=== PATIENT | female | born 1965 | race Caucasian/White ===

== ENCOUNTER 2021-07-07 12:12 | Day surgery (SDC) | payer MEDICAID, SELFPAY ==
[2021-07-07] VITALS (11 sets, daily range): BP systolic 102–143; BP diastolic 41–94; PULSE 70–93; RESP 16–18; TEMP 36.1–36.8; O2SAT 94–99
--- NOTE | 2021-07-07 12:26 | EKG12_ITS ---
Test Reason : PRE OP Blood Pressure : / mmHG Vent. Rate : 070 BPM Atrial Rate : 070 BPM P-R Int : 150 ms QRS Dur : 090 ms QT Int : 428 ms P-R-T Axes : 039 -02 016 degrees QTc Int : 462 ms Normal sinus rhythm Normal ECG Confirmed by CURLY SANTIAGO, ALENA ([id number]), film and video editor SANJAY MARINO ([id number]) on 07/13/2021 9:50:41 AM Referred By: Andre Jones Confirmed By:ALENA RAWLS MD
[2021-07-07 14:04] LABS: Anion Gap 7 (5-15); BUN 14 mg/dL (7-18); BUN/Creat Ratio 20.1 RATIO (10-20); Calcium,Total 9.1 mg/dL (8.5-10.1); Chloride 102 mmol/L (98-107); EST Glomerular Filtration Rate 93 mL/min (>60); Est Glom Filt Rate - Afr Amer 112 mL/min (>60); Estimated Creatinine Clearance 65.23 ml/min; Glucose 120 mg/dL (74-106); Potassium 4.1 mmol/L (3.5-5.1); Sodium Level 140 mmol/L (136-145)
[2021-07-07] MEDS: Cefazolin 2 GM in 0.9% Normal Saline 100 ML IV (14:26)
--- NOTE | 2021-07-07 14:45 | RAD_ITS ---
STUDY: X-RAY - LEFT HUMERUS REASON FOR EXAM: Female, 55 years old. FX TECHNIQUE: 9 intraoperative fluoroscopic view(s) of the humerus. COMPARISON: None. FINDINGS: Acute oblique displaced fracture through the mid aspect of the left humerus noted. Subsequent images shows reduction of the fracture fragments followed by surgical instrumentation with subsequent placement of a cortical plate-screw construct across the middle one third aspect of the humerus with near-anatomic alignment. RAD/Humerus min 2 Views IMPRESSION: Status post hardware fixation of the left humerus fracture fragments Electronically Signed: Jake Crystal MD at 16:57 EDT , Service support ,
[2021-07-07] MEDS: Thrombin 5,000 IU Kit (PSA) 5,000 IU Vial 5000 IU TOPICAL (15:35)
[2021-07-07 15:46] LABS: Bedside Glucose 112 mg/dL (70-110)
--- NOTE | 2021-07-07 16:43 | DCINST_ITS ---
Discharge Instructions Diet Discharge Diet: No restrictions Activity Discharge Activity: May Not Drive and May Shower (keep dressing dry) May shower in (days): 1 May resume sexual activity in: 10-14 days Ice area for (Minutes): 30 Weight Bearing Status: No weight bearing Additional Activity Instructions:: Sling for comfort. May remove sling for gentle range of motion of shoulder elbow wrist and fingers. Dressing / Incision Call your doctor if your incision/area has: Continuous Slow Oozing, Sudden Inc reased Bleeding, Increased Pain/ Swelling and Increased Redness Call your doctor if you observe: Fever of 101 or Higher Change Dressing in: do not change dressing Remove Dressing in: 5 days Additional Dressing/Incision Instructions:: If incision is clean dry and intact may leave the wound open to air and continue showering. If there is continued drainage continue daily dry dressing changes and keep incision clean dry and intact until there is no drainage. Follow Up Care Test Results: Test results from this visit will be discussed in further detail at your follow-up appointment, if applicable. Discharge Plan Admission Attending Provider: Andre Jones Primary Care Provider: Yolanda Beverly Discharge Orders/Prescriptions Prescriptions: New oxycodone 5 mg Tablet 5 - 10 mg PO Q6H PRN (Reason: pain) 7 Days Qty: 50 RF: 0 Continued metformin 500 mg tablet 500 mg PO BID RF: 0 atorvastatin 20 mg tablet 20 mg PO QHS RF: 0 citalopram 20 mg tablet 20 mg PO DAILY RF: 0 vitamin A 10,000 unit Capsule 10,000 unit PO DAILY RF: 0 ascorbic acid (vitamin C) [Vitamin C] 500 mg Tablet 500 mg PO DAILY RF: 0 lisinopril-hydrochlorothiazide 10-12.5 mg tablet 1 tab PO DAILY RF: 0 multivitamin-iron (hematinic) Tablet 1 tab PO DAILY RF: 0 albuterol sulfate 2.5 mg /3 mL (0.083 %) Solution For Nebulization 2.5 mg INHALATION Q4H PRN (Reason: ASTHMA) RF: 0 Discontinued oxycodone-acetaminophen 5-325 mg tablet 1 tab PO Q4H PRN PRN (Reason: Pain) RF: 0 Referrals / Follow Up: Yolanda Beverly PA [Primary Care Provider] - Disposition Disposition (needs filled in before D/C Order can be placed): Home, Self Care
--- NOTE | 2021-07-07 16:46 | OP.PCM_ITS ---
Report of Operation Date of Procedure: 07/07/21 Pre-Operative Diagnosis: Left midshaft humerus fracture Post-Operative Diagnosis: Left midshaft humerus fracture Surgery/Procedure Performed:: Open reduction internal fixation left midshaft humerus fracture Description of Surgical Findings:: Stable well reduced fracture Surgeon: Andre Jones kiln car unloader: Kp Muhammad Type of Anesthesia: General Anesthesiologist: Sergio Portillo Special Medications: Ancef Estimated Blood Loss (mL): 150 Fluids Replaced: 1400 mL crystalloid Description of Procedure: On the date of procedure patient's left humerus was marked in the preoperative area. Patient was brought back to the operating room where they were transferred the table in the supine position. Anesthesia assumed control of the C-spine and airway. After the administered anesthetic all bony prominences identified well-padded. Patient was placed in the lateral position and the left upper extremity was placed over a bump and radiolucency was verified. A beanbag was used to position the patient. All bony problems were again identified well-padded axillary roll was placed. At this time the left upper extremity was prepped sterilely using chlorhexidine and the left upper extremity was then draped after the surgeon scrubbed. After sterilely draping the left upper extremity timeout was called everyone agreed upon the side, the site, procedure to be performed, patient's identity and antibiotics given. After timeout was called incision was marked out. Incision was taken through skin. Bovie cautery was used to dissect down to fascia. Fascia was in cised sharply. The triceps musculature was then retracted medially carefully retracting his we identified the radial nerve. Radial nerve is laying right over the fracture and area of callus. This was carefully dissected off the fracture callus and there were some adhesions. After we were able to do this were able to identify both fracture ends. Previous fracture callus and fracture hematoma were removed. Pointed reduction clamps used to reduce the fracture. Live x-ray was used to verify fracture reduction. 2 lag screws were placed in a lag screw by technique design. Once this was completed an 8 hole plate was placed the nerve went over holes 5 through 7 with #1 being the most distal hole. 2 screws were placed to provisionally fix the plate. Once this was done live x-ray was used to verify plate placement and fracture reduction. Once we are happy with this 2 additional screws were placed proximally distally for a total of 6 cortices proximal to the fracture and distal to the fracture. Live x-ray was used to verify final plate placement screw placement and fracture reduction. Wound was copiously irrigated out normal saline. Fascia was closed using 0 Vicryl skin was closed using 2-0 Vicryl. Final closure was done with strata fix Monocryl barbed suture. Steri-Strips were placed. Soft compressive dressing was placed. Patient was awakened anesthesia transferred the PACU for recovery. Postop plan patient will be nonweightbearing for a total of 6 weeks. We will start early range of motion with physical therapy at 2-week postop visit. She will start gentle range of motion at home. She is placed in a sling today. She will get a block for postop pain control. We did not use the block preoperatively so that we can monitor the nerve intraoperatively. My physician assistant sales director played a vital role throughout the procedure. He was vital in helping with positioning the patient. He was vital with and helping to carefully dissect and retract tissues as we identified the nerve. He was vital and protecting the nerve during the procedure. Was vital in helping with retraction and rotation of the arm as we reduce the fracture. He was vital in helping place the hardware by retracting neurovascular structures. He was vital in closure under my direct supervision.
[2021-07-07 17:50] LABS: Bedside Glucose 130 mg/dL (70-110)
[2021-07-07] MEDS: Ketorolac 30 MG/ML Syringe IV (17:57)
[2021-07-07] MEDS: Ipratropium/Albuterol Sulfate 3 ML AMPUL.NEB INHALATION (18:26)
[2021-07-07] MEDS: oxyCODONE 5 MG Tablet PO (19:09)
== END 2021-07-07 19:45 | disposition home or self-care (01) ==
LOC: SDC 12:16 → AC 12:18
PROVIDERS: Anesthesiology; Referring Provider Specialist; Visit Provider Specialist
PROC: (CPT 24515; principal; 2021-07-07 14:25)
DX: S42.332A Displaced oblique fracture of shaft of humerus, left arm, initial encounter for closed fracture (principal); X58.XXXA Exposure to other specified factors, initial encounter; Y93.9 Activity, unspecified; Y92.9 Unspecified place or not applicable; Y99.9 Unspecified external cause status; G80.9 Cerebral palsy, unspecified; E11.9 Type 2 diabetes mellitus without complications; I10 Essential (primary) hypertension; E78.00 Pure hypercholesterolemia, unspecified; J45.909 Unspecified asthma, uncomplicated; M19.90 Unspecified osteoarthritis, unspecified site; K21.9 Gastro-esophageal reflux disease without esophagitis; F32.A Depression, unspecified; Z79.84 Long term (current) use of oral hypoglycemic drugs; Z79.82 Long term (current) use of aspirin; Z79.899 Other long term (current) drug therapy
CPT/HCPCS: 01740; 24515; 73060; 76000; 80048; 82962; 83036; 93005; 94640; C1713; J7120; J2405

== ENCOUNTER 2025-04-10 17:38 | Emergency (ER) | payer MEDICAID, SELFPAY ==
[2025-04-10 17:38] VITALS: BP 150/84; PULSE 105; RESP 18; TEMP 36.6; O2SAT 99; BMI 29.0
--- NOTE | 2025-04-10 18:00 | EDS_ITS ---
HPI History of Present Illness Chief Complaint: Anxiety Informant: patient Onset/Context/Timing Onset: Weeks (2) Context: Gradual Onset Timing: Continuous Quality: Jittery Location: Generalized Worsened by: Nothing Relieved by: Family Narrative Narrative: Patient presents with increased anxiety over the past 2 weeks. Patient states it became worse this morning when she woke up. Patient states she feels jittery. Patient states she feels better when her family is around. Patient states she was recently treated for urinary tract infection. Patient denies any nausea or vomiting. Patient does admit to some dysuria. Patient states she was hospitalized in the past for bipolar disorder. Family states she was started on medications for bipolar disorder. Family states the patient followed up with psychiatrist and was doing better. Family states that the psychiatrist stopped her bipolar medications. Family states that her symptoms have been getting progressively worse. Patient denies any suicidal ideations. [facility] Medical History (Updated 04/10/25 @ 23:[address] Mynor Arce, DO) Bipolar disorder (manic depression) Wears glasses Depression Diabetes Ambulates with cane Walker as ambulation aid Arthritis Kidney stone Anemia High cholesterol Cerebral palsy Difficulty swallowing History of IBS Gastric reflux Asthma Shortness of breath on exertion Chronic cough Leg cramps History of pain when walking History of edema Hypertension Home Medications ?Medication ?Instructions ?Recorded ?Last Taken ?Type albuterol sulfate 2.5 mg/3 mL 2.5 mg inhalation Q4H [place] N ASTHMA 07/05/21 Unknown History (0.083 %) solution for nebulization ascorbic acid (vitamin C) 500 mg 500 mg PO DAILY 07/05 Unknown History tablet (Vitamin C) atorvastatin 20 mg tablet 20 mg PO QHS 07/05/21 Unknow n History citalopram 20 mg tablet 20 mg PO DAILY 07/05/21 Unkn own History lisinopril 10 1 tab PO DAILY 07/05/21 Unkn own History mg-hydrochlorothiazide 12.5 mg tablet metformin 500 mg tablet 500 mg PO BID 07/05/21 Unkno wn History multivitamin-iron (hematinic) 1 tab PO DAILY 07/05/21 Unknown History vitamin A 3,000 mcg (10,000 unit) 10,000 unit PO DAILY 07/05/21 Unknown History capsule oxycodone 5 mg tablet 5 - 10 mg (1 - 2 x 5 mg) PO Q6H 07/07/21 Unknown Rx PRN pain 7 days #50 tabs Allergy/AdvReac Type Severity Reaction Status Date / Time Penicillins AdvReac Severe RASH Verified 04/10/25 17:41 Surgical History S/P ORIF (open reduction internal fixation) fracture Hx of foot surgery Hx of hysterectomy Social History Smoking Status: Never smoker ROS ROS ED Constitutional Constitutional ED: Denies chills or fever(s) Eyes Eyes: Denies blurry vision or change in vision ENT ENT ED: Reports sore throat; Denies rhinorrhea Cardiovascular Cardiovascular: Denies chest pain or palpitations Respiratory/Chest Respiratory/Chest: Reports cough; Denies dyspnea Gastrointestinal Gastrointestinal: Denies nausea or vomiting Genitourinary Genitourinary ED: Reports dysuria; Denies hematuria Musculoskeletal Musculoskeletal: Reports back pain; Denies neck pain Integumentary Reports rash; Denies abscess Neurologic Neurologic: Reports headache(s); Denies weakness Psychiatric Psychiatric: Reports anxiety Allergic/Immunologic Allergic/Immunologic ED: Denies mouth swelling or urticaria EXAM Physical Exam Const Vital Signs: 04/10/25 17:38 04/10/25 21:38 04/10/25 21:43 Temperature 98 F 98 F Temperature Source Oral Pulse Rate 105 H 96 96 Respiratory Rate 18 18 18 Blood Pressure 150/84 H 166/82 H 166/82 H Blood Pressure Mean 106 110 110 Pulse Ox 99 100 100 Oxygen Delivery Method Room Air Positive well nourished and well developed General Appearance ED: well developed and NAD HEENT Reports moist mucous membranes Neck supple and no JVD Resp normal respiratory effort and clear to auscultation bilaterally Cardio regular rate and regular rhythm GI non-tender and non-distended Palpation: soft Neuro oriented x3, CN's II-XII intact bilaterally and no sensory deficits noted Psych mental status grossly normal MDM MDM MDM Narrative Medical decision making narrative: Differential diagnosis includes bipolar disorder, anxiety, electrolyte abnormality, urinary tract infection, and dehydration. CBC will be obtained to assess for leukocytosis and anemia. Basic metabolic profile will be obtained to assess for electrolyte abnormality and renal function. Urinalysis will be obtained to assess for urinary tract infection and hematuria. History & Record Review Additional record(s) reviewed:: Prior outpatient record and Prior labs Lab Data Attestation: I reviewed the patient's lab results. Lab results narrative: CBC was reviewed. There is a slight anemia with a hemoglobin of 11.3. The remainder is within normal limits. Basic metabolic profile was reviewed. Glucose was slightly elevated at 123. The remainder was within normal limits. Urinalysis was reviewed. Leukocyte esterase was 500 with 5-10 white blood cells. Labs: Laboratory Results - last 24 hr 04/10/25 04/10/25 18:13 18:48 WBC 10.0 RBC 4.72 Hgb 11.3 L Hct 37.1 MCV 78.6 L MCH 23.9 L MCHC 30.5 L RDW Std Deviation 51.8 H RDW Coeff of [place] 18.2 H Plt Count 369 MPV 9.4 Immature Gran % (Auto) 0.200 Neut % (Auto) 50.4 Lymph % (Auto) 38.7 [place] % (Auto) 7.0 Eos % (Auto) 3.2 Baso % (Auto) 0.5 Absolute Neuts (auto) 5.0 Absolute Lymphs (auto) 3.86 Nucleated RBC % 0 Sodium 143 Potassium 4.2 Chloride 108 Carbon Dioxide 23.1 Anion Gap 12 BUN 14 Creatinine 0.77 Estim Creat Clear Calc 67.38 Est GFR (MDRD) Non-Af 88 BUN/Creatinine Ratio 18.6 Glucose 123 H Calcium 9.3 Urine Color Yellow Urine Clarity Clear Urine pH 6.0 Ur Specific [place] 1.025 Urine Protein 30 H Urine Glucose (UA) Normal Urine Ketones Negative Urine Occult Blood 10 H Urine Nitrite Negative Urine Bilirubin Negative Urine Urobilinogen Normal Ur Leukocyte Esterase 500 H Urine RBC 0-5 SEEN Urine WBC 5-10 SEEN Ur Squamous Epith Cells 0-5 SEEN Urine Bacteria 0 SEEN Urine Mucus 0 SEEN Management Discussion w/another healthcare provider: oil field worker/Case management Additional Tests and Interventions Additional Tests or Interventions: Urine culture was ordered. Treatment and Re-Evaluation :: Patient was given a dose of hydroxyzine. Patient was feeling better after this. Patient was advised of her findings. Patient was given a dose of Bactrim here. Patient was given a prescription for Bactrim. Patient was instructed to drink plenty of fluids. Patient was instructed to follow-up with her primary care physician in 5 to 7 days. Patient was also given referral for mental health. Patient will follow up with this. Patient and family understood and were agreeable with the plan. All questions were answered. Prior to the patient being discharged, she began feeling more anxious. Patient states she did not feel safe going home. Patient had vague suicidal ideations. Patient told behavioral health worker that there are times where she feels like she would be better off . Patient denies any plan for suicide. Patient started having more flight of ideas and tangential thoughts. Because of this, crisis counselor recommended admission to a psychiatric hospital. Family is agreeable with this. [place] slip was filled out and placed on the chart. Patient is medically cleared for psychiatric placement. Care of the patient will be t urned over to the oncoming physician pending placement. Discharge Plan Triage Chief Complaint: Anxiety ED Provider: Mynor Arce Dx/Rx/DC Orders Clinical Impression: Bipolar disorder with severe leonardo, Acute anxiety, Urinary tract infection Instructions: ED Anxiety Reaction, ED Cystitis Female Adult Prescriptions: No Action metformin 500 mg tablet 500 mg PO BID atorvastatin 20 mg tablet 20 mg PO QHS citalopram 20 mg tablet 20 mg PO DAILY vitamin A 10,000 unit Capsule 10,000 unit PO DAILY ascorbic acid (vitamin C) [Vitamin C] 500 mg Tablet 500 mg PO DAILY lisinopril-hydrochlorothiazide 10-12.5 mg tablet 1 tab PO DAILY multivitamin-iron (hematinic) Tablet 1 tab PO DAILY albuterol sulfate 2.5 mg /3 mL (0.083 %) Solution For Nebulization 2.5 mg INHALATION Q4H PRN (Reason: ASTHMA) oxycodone 5 mg Tablet 5 - 10 mg PO Q6H PRN (Reason: pain) 7 Days Qty: 50 0RF Primary Care Provider: Yolanda Beverly Referrals: Yolanda Beverly PA [Primary Care Provider] - 3-5 Days Print Language: Syriac Disposition Disposition: Psychiatric Hospital or Unit
[2025-04-10 18:37] LABS: Hematocrit 37.1 % (37-47); Hemoglobin 11.3 g/dL (12.0-15.0); Immature Granulocytes Count 0.020 X10^3/uL (0.0-0.0); Mean Corp Hgb Conc 30.5 g/dL (32-36); Mean Corpuscular Volume 78.6 fL (81-99); Mean Platelet Vol. 9.4 fl (6.2-12.0); NRBC Flagged by Analyzer 0 % (0-5); Platelet Count 369 K/mm3 (150-450); RBC Distribution Width CV 18.2 % (11.6-14.6); RBC Distribution Width SD 51.8 fl (35.1-43.9); Red Blood Count 4.72 M/mm3 (4.2-5.4); White Blood Count 10.0 K/mm3 (4.4-11.0)
[2025-04-10 18:52] LABS: Mucous, Urine 0 SEEN /hpf (<or=2+)
[2025-04-10 19:10] LABS: Anion Gap 12 (5-15); BUN 14 mg/dL (4-19); BUN/Creat Ratio 18.6 RATIO (10-20); Calcium,Total 9.3 mg/dL (7.6-11.0); Carbon Dioxide 23.1 mmol/L (21.0-32.0); Chloride 108 mmol/L (98-108); Estimated Creatinine Clearance 67.38 ml/min (50-250); Glucose 123 mg/dL (70-99); Potassium 4.2 mmol/L (3.3-5.1)
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
[2025-04-10] MEDS: hydrOXYzine PAM 25 MG Capsule PO (19:38)
[2025-04-10 20:57] LABS: Color, Urine Yellow (Yellow); Glucose, Dipstick Normal (Normal); Ketone-Dipstick Negative (Negative); Leukocyte Esterase-Dipstick 500 /ul (Negative); Nitrite-Dipstick Negative (Negative); Occult Blood-Urine 10 /ul (Negative); Protein-Dipstick 30 mg/dl (Negative); Specific Gravity, Urine 1.025 (1.002-1.030); Urine Bilirubin Dipstick Negative (Negative)
[2025-04-10 21:01] LABS: Red Blood Cells-Urine 0-5 SEEN /hpf (0-5); Squamous Epithelial Cells - UA 0-5 SEEN /hpf (5-10)
[2025-04-10 21:38] VITALS: BP 166/82; PULSE 96; RESP 18; O2SAT 100
[2025-04-10 21:43] VITALS: BP 166/82; PULSE 96; RESP 18; TEMP 36.6; O2SAT 100
[2025-04-11 01:00] VITALS: BP 170/97; PULSE 92; RESP 18; TEMP 36.8; O2SAT 100
[2025-04-11 01:20] LABS: Barbiturate Urine NEGATIVE (< 200 ng/mL); Benzodiazepine Urine NEGATIVE (< 200 ng/mL); PCP Urine NEGATIVE (< 25 ng/mL); THC Urine NEGATIVE (< 50 ng/mL)
[2025-04-11 01:40] LABS: Alcohol, Blood (Medical)-Serum < 10.1 mg/dL (<=10.0)
[2025-04-11 05:00] VITALS: BP 152/85; PULSE 83; RESP 16; O2SAT 99
== END 2025-04-11 06:44 ==
PROVIDERS: Emergency Provider Emergency Medicine; Visit Provider Emergency Medicine
DX: F41.9 Anxiety disorder, unspecified (principal); F31.9 Bipolar disorder, unspecified; E11.9 Type 2 diabetes mellitus without complications; N39.0 Urinary tract infection, site not specified; I10 Essential (primary) hypertension; E78.00 Pure hypercholesterolemia, unspecified; Z90.710 Acquired absence of both cervix and uterus; Z79.899 Other long term (current) drug therapy; Z79.84 Long term (current) use of oral hypoglycemic drugs
CPT/HCPCS: 80048; 80307; 81001; 82077; 85025; 87086; 87088; 99283; A4216